=== PATIENT | female | born 2000 | race Caucasian/White ===

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

== ENCOUNTER → 2020-01-25 | Outpatient (CLI) | payer BC ==
[~2020-01-25] MED LIST: CIPR-249 PO
--- NOTE | 2020-03-03 08:18 | REP ---
RENAL ULTRASOUND: Delay in reporting results from hospital computer system malfunction from malware/ ransomware. HISTORY: Hydronephrosis. COMPARISON: 12/26/19 FINDINGS: The right kidney measures 12.6 x 4.1 x 6.0 cm. The left kidney measures 12.4 x 4.4 x 5.6 cm. The kidneys are normal size. Renal cortical echogenicity is normal bilaterally. There is severe hydronephrosis on the right. This is unchanged. There is mild hydronephrosis on the left. This is unchanged. No renal calculi are identified. There are no solid or cystic renal masses. IMPRESSION: Severe right hydronephrosis. Mild left hydronephrosis. This is unchanged from the prior study. BLADDER ULTRASOUND: The pre-void bladder volume is 834 ml. The post void bladder volume is 46 ml. Image of the right kidney post void demonstrates that the severe hydronephrosis is persistent. Image of the left kidney post void indicates the mild hydronephrosis is persistent. IMPRESSION: Bilateral hydronephrosis, severe on the right and mild on the left. The hydronephrosis persists bilaterally post void. The hydronephrosis is unchanged from the comparison study. MTDD
== END ==
LOC: M WHC 16:52
PROVIDERS: ATTEND Nurse Practitioner Family
DX: N13.30 Unspecified hydronephrosis (principal)

== ENCOUNTER → 2020-04-25 | Outpatient (CLI) | payer SELFPAY | LOC: M LABSMTC 10:12 | PROVIDERS: ATTEND Pediatrics | DX: Z20.828 Contact with and (suspected) exposure to other viral communicable diseases (principal) ==

== ENCOUNTER → 2020-05-01 | Outpatient (REF) | payer BC ==
[2020-05-01 14:15] LABS: APPEARANCE, URINE CLEAR (CLEAR); BACTERIA, URINE AUTO NEGATIVE (NEGATIVE); BILIRUBIN, URINE AUTO NEGATIVE (NEGATIVE); BLOOD, URINE BLOOD NEGATIVE (NEGATIVE); COLOR, URINE YELLOW (YELLOW); GLUCOSE, URINE (UA) AUTO NEGATIVE (NEGATIVE); KETONE, URINE AUTO NEGATIVE (NEGATIVE); LEUKOCYTE ESTERASE, URINE AUTO NEGATIVE (NEGATIVE); NITRITE, URINE AUTO NEGATIVE (NEGATIVE); PROTEIN, URINE AUTO NEGATIVE (NEGATIVE); RBC, URINE AUTO 0 /HPF (0-3); SPECIFIC GRAVITY URINE AUTO 1.009 (1.002-1.035); SQUAMOUS EPITHELIAL CELL UR AU 1 /HPF (0-6); UROBILINOGEN, URINE AUTO 0.2 mg/dL (0.0-2.0); WBC, URINE AUTO 1 /HPF (0-3)
== END ==
LOC: M SMT 13:21
PROVIDERS: ATTEND Urology
DX: N13.30 Unspecified hydronephrosis (principal)

== ENCOUNTER → 2020-10-26 | Outpatient (CLI) | payer BC, OTHER, SELFPAY ==
--- NOTE | 2020-10-27 07:21 | REP ---
INDICATION: HYDRONEPHROSIS COMPARISON: 01/25/2020 TECHNIQUE: Real time gonzalez scale ultrasound examination using curved array transducer. FINDINGS: Right kidney measures 9.7 x 5.6 x 4.1 cm with evidence for grade 3/4 hydroureteronephrosis including proximal ureter measuring 17 mm diameter. Right renal cysts cannot be excluded although these may represent dilated calices. No obvious nephrolithiasis noted. Left kidney is normal in appearance without hydroureteronephrosis and measures 11.8 x 5.0 x 6.3 cm. Limited evaluation of the bladder demonstrates a decreased right ureteral jet as compared to the left ureteral jet. IMPRESSION: 1. Grade 3/4 right hydronephrosis relatively similar to prior examination. However, the right kidney itself is decreased in size which suggesting subsequent atrophic changes. <Electronically signed by Carlos Henao > 10/27/20 0734
== END ==
LOC: M RAD 11:17
PROVIDERS: ATTEND Urology
DX: N13.30 Unspecified hydronephrosis (principal)

== ENCOUNTER → 2020-12-13 | Outpatient (CLI) | payer OTHER ==
[~2020-12-13] MED LIST changes: +NEXP1IMP SC
[2020-12-13 16:42] LABS: APPEARANCE, URINE CLEAR (CLEAR); BACTERIA, URINE AUTO NEGATIVE (NEGATIVE); BILIRUBIN, URINE AUTO NEGATIVE (NEGATIVE); BLOOD, URINE BLOOD 1+ (NEGATIVE); COLOR, URINE COLORLESS (YELLOW); GLUCOSE, URINE (UA) AUTO NEGATIVE (NEGATIVE); KETONE, URINE AUTO NEGATIVE (NEGATIVE); LEUKOCYTE ESTERASE, URINE AUTO NEGATIVE (NEGATIVE); NITRITE, URINE AUTO NEGATIVE (NEGATIVE); PROTEIN, URINE AUTO NEGATIVE (NEGATIVE); RBC, URINE AUTO 0 /HPF (0-3); SPECIFIC GRAVITY URINE AUTO 1.002 (1.002-1.035); SQUAMOUS EPITHELIAL CELL UR AU 0 /HPF (0-6); UROBILINOGEN, URINE AUTO 0.2 mg/dL (0.0-2.0); WBC, URINE AUTO 0 /HPF (0-3)
[2020-12-13 16:47] LABS: HEMATOCRIT 38.1 % (36.0-47.0); MEAN CORPUSCULAR HEMOGLOBIN 31.9 pg (27.0-33.0); MEAN CORPUSCULAR HGB CONC 34.1 g/dl (32.0-36.5); MEAN CORPUSCULAR VOLUME 93.4 fl (80.0-96.0); PLATELET COUNT, AUTOMATED 189 10^3/uL (150-450); RED BLOOD COUNT 4.08 10^6/uL (4.00-5.40); WHITE BLOOD COUNT 6.6 10^3/uL (4.0-10.0)
[2020-12-13 17:16] LABS: INR 1.05; PROTHROMBIN TIME 13.9 SECONDS (12.5-14.3)
[2020-12-13 17:17] LABS: PARTIAL THROMBOPLASTIN TIME 32.3 SECONDS (24.2-38.5)
[2020-12-13 17:18] LABS: BLOOD UREA NITROGEN 22 MG/DL (7-18); CALCIUM LEVEL 8.8 MG/DL (8.5-10.1); CARBON DIOXIDE LEVEL 25 MEQ/L (21-32); CHLORIDE LEVEL 105 MEQ/L (98-107); CREATININE FOR GFR 0.83 MG/DL (0.55-1.30); GLUCOSE, FASTING 73 MG/DL (70-100); POTASSIUM SERUM 3.6 MEQ/L (3.5-5.1); SODIUM LEVEL 137 MEQ/L (136-145)
== END ==
LOC: M WUC 14:22
PROVIDERS: ATTEND Nurse Practitioner Family
DX: Z01.818 Encounter for other preprocedural examination (principal); N13.30 Unspecified hydronephrosis

== ENCOUNTER → 2020-12-16 | Outpatient (CLI) | payer OTHER | LOC: M LABSMTC 09:56 | PROVIDERS: ATTEND Anesthesiology | DX: Z01.818 Encounter for other preprocedural examination (principal); Z11.52 Encounter for screening for COVID-19 ==

== ENCOUNTER 2020-12-21 10:37 | Day surgery (SDC) | payer OTHER ==
[~2020-12-21] VITALS: Ht 170.2 cm; Wt 58.5 kg
[~2020-12-21 10:37] MED LIST changes: +CONRAY-60 60% 50ML VIAL (Q9961) As Ordered ONE; +LIDOCAINE 1% MDV 20ML VIAL SQ PRN; +ceFAZolin SOD 2 GM in IV 1 EA IV ONE
[2020-12-21] MEDS ORDERED: LR 1,000 ML IV ONE (10:45)
[2020-12-21] MEDS ORDERED: MIDAZOLAM INJ 2MG/2ML VIAL (J2250 PER 1MG) As Ordered ONE (12:38)
[2020-12-21] MEDS ORDERED: fentaNYL 100 MCG/2 ML INJECTION (J3010) As Ordered ONE (12:39)
[2020-12-21] MEDS ORDERED: LIDOCAINE 2% 100MG/5ML SDV (FOR ANES.) As Ordered ONE (12:40)
[2020-12-21] MEDS ORDERED: propofoL 200 MG/20 ML VIAL As Ordered ONE (12:40)
[2020-12-21] MEDS ORDERED: dexameTHASONE 4 MG/ML 1ML VIAL (J1100 PER 1MG) As Ordered ONE (12:41)
[2020-12-21] MEDS ORDERED: KETOROLAC 60MG 2ML VIAL As Ordered ONE (12:41)
[2020-12-21] MEDS ORDERED: ONDANSETRON 4MG/2ML VIAL As Ordered ONE (12:41)
[2020-12-21] MEDS ORDERED: ACETAMINOPHEN 1000MG 100ML IV BTL (OFIRMEV) (J0131 PER 10MG) As Ordered ONE (12:41)
[2020-12-21] MEDS ORDERED: CONRAY-60 60% 50ML VIAL (Q9961) As Ordered ONE (13:29)
--- NOTE | 2020-12-21 14:04 | REP ---
INDICATION: RIGHT STENT PLACEMENT. COMPARISON: None. TECHNIQUE: Six views. 39 seconds of fluoroscopy time is reported. FINDINGS: A sequence of 6 last image hold fluoroscopically obtained spot radiographs the right abdomen document right ureteral cannulation, contrast injection, a mid ureteral stricture, balloon dilation of the ureter, right-sided hydronephrosis, and right-sided double-pigtail ureteral stent placement. IMPRESSION: Procedural imaging. <Electronically signed by Jonathon Serrano > 12/21/20 1400
[2020-12-21] MEDS ORDERED: LR 1,000 ML IV SCH (14:15)
[2020-12-21] MEDS ORDERED: oxyCODONE 5MG TAB PO PRN (14:15)
[2020-12-21] MEDS ORDERED: METOCLOPRAMIDE INJ 10MG/2ML VIAL (J2765 PER 1) IV PRN (14:15)
[2020-12-21] MEDS ORDERED: oxyBUTYnin 5 MG TAB PO PRN (14:15)
[2020-12-21] MEDS ORDERED: fentaNYL 100 MCG/2 ML INJECTION (J3010) IV PRN (14:15)
[2020-12-21] MEDS ORDERED: ONDANSETRON 4MG/2ML VIAL IV PRN (14:15)
[2020-12-21] MEDS ORDERED: PERCOCET 5MG/325MG TAB PO PRN (14:15)
[2020-12-21] MEDS ORDERED: PERCOCET PO (14:19)
[2020-12-21] MEDS ORDERED: OXYB5TAB10 PO (14:19)
[2020-12-21 15:30] VITALS: BP 105/73
--- NOTE | 2020-12-22 08:56 | RO ---
OPERATIVE NOTE DATE OF OPERATION: 12/21/2020 PREOPERATIVE DIAGNOSES: Right hydroureteronephrosis. POSTOPERATIVE DIAGNOSIS: Right ureteral stricture, right hydroureteronephrosis. PROCEDURE: Cystoscopy, right ureteroscopy with balloon dilation of ureteral stricture, right retrograde pyelogram with intraoperative interpreted images, right ureteral stent placement. SURGEON: Rick Cabrera MD HEMATOLOGY NURSE: None. ANESTHESIA: OPERATIVE INDICATIONS: This is a 20-year-old female who was originally found to have mild to moderate right hydronephrosis several months ago. On followup renal ultrasound, she still had persistent right-sided hydronephrosis as well as what appeared to atrophic changes in the right kidney. She is brought to the operating room today to try to determine the cause of hydronephrosis and to treat it as well as to place a stent. DESCRIPTION OF PROCEDURE: The patient was brought to the operating room and general anesthesia was induced. Prophylactic antibiotics were infused. She was placed in the dorsal lithotomy position, and prepped and draped in the usual sterile fashion. A rigid cystoscope was inserted in the urethral meatus and advanced into the bladder. A guidewire was advanced up the right collecting system. I then advanced a 5 Mozambican open ended ureteral catheter up the right collecting system. The wire was removed. A retrograde pyelogram was performed and contrast opacified the distal ureter all the way up to the mid-ureter and not much contrast went above that level. I then advanced the ureteral catheter up above the level of narrowing and a retrograde pyelogram was performed. It demonstrated right hydroureteronephrosis down to a very short segment of ureteral stricture. At this point, I advanced the guidewire back up the right collecting system. I went into the right collecting system with a short semirigid ureteroscope and in the mid-ureter at about the level of the crossing of the iliac vessels, there was a very narrow stricture. There were no lesions seen inside the ureter. I was not able to get the scope through the stricture. At this point, the ureteroscope was removed and I then advanced a 15 Mozambican balloon dilator up the right collecting system. I then inflated the balloon to 15 Mozambican several times in this area of the stricture and left it inflated for about a minute each time. Once that was done, the balloon dilator was removed and I went back up the collecting system with a ureteroscope. Once that was done, I was able to get the ureteroscope through the level of the stricture as it was a little bit more patent. Of note, it was not significantly more patent. I advanced the ureteroscope into the more proximal ureter and no abnormalities were seen other than the severely dilated ureter. I then withdrew the ureteroscope and utilized the guidewire to advance a 6 Mozambican x 22-32 cm JJ ureteral stent up the right collecting system. The wire was removed and there were adequate curls of the stent in the right renal pelvis and in the bladder. The bladder was emptied of all fluids and this marked the conclusion of the procedure. The patient was then taken out of dorsal lithotomy position, awakened from anesthesia and transported to the recovery room in stable condition. ESTIMATED BLOOD LOSS: 5 mL COMPLICATIONS: None. SPECIMENS: None. PLAN: I will leave the patient's stent in and get a repeat Mag3 Lasix renal scan to see if her renal function is improved with the stent in place. If she has significantly improved function with the stent in place, then we should try to salvage this kidney. It might be the case that her ureter will remain patent from the balloon dilation alone. If it does not, then she might require a ureteroureterostomy in the future. MARTÍN
== END 2020-12-21 15:40 | disposition home or self-care (01) ==
LOC: M SDC 10:37
PROVIDERS: ATTEND Urology
DX: N13.1 Hydronephrosis with ureteral stricture, not elsewhere classified (principal); Z79.3 Long term (current) use of hormonal contraceptives
CPT/HCPCS: 52332; 52341; 74420; 81025; C1769; C2617; J0131; J0690; J1100; J1885; J2250; J2405; J3010; Q9961

== ENCOUNTER → 2021-01-08 | Outpatient (CLI) | payer OTHER ==
[~2021-01-08] MED LIST changes: -CONRAY-60 60% 50ML VIAL (Q9961) As Ordered ONE; -LIDOCAINE 1% MDV 20ML VIAL SQ PRN; +OXYB5TAB10 PO; +PERCOCET PO; -ceFAZolin SOD 2 GM in IV 1 EA IV ONE
--- NOTE | 2021-01-08 14:04 | REP ---
INDICATION: URETERAL STRICTURE-RT. COMPARISON: Ultrasound 10/26/2020. TECHNIQUE/RADIOTRACER AND DOSE: Following the intravenous administration of 8.8 mCi technetium 99 M Mag 3, flow and function images are obtained in the posterior projection up to 30 minutes. FINDINGS: There is delayed and somewhat compromised perfusion of the right kidney. The right kidney appears smaller than the left. There is bilateral cortical uptake and excretion. There is no hydronephrosis bilaterally. There is mild right-sided pelvicaliectasis without obstruction. Split function is 63.7% on the left and 36.3% on the right. Time to peak is normal bilaterally at 2 minutes. T1/2 is normal on the left at 7.2 minutes with a normal appearing renal function curve. T1/2 on the right is upper limits of normal 11.3 minutes with a somewhat shallow downward slope. There is very mild postvoid residual in the urinary bladder after voiding. IMPRESSION: Right kidney appears atrophic with lesser degree of flow and function compared to the left. Mild right pelvicaliectasis with no evidence of urinary tract obstruction. <Electronically signed by Andrey Meneses > 01/08/21 [id number]
== END ==
LOC: M RAD 12:21
PROVIDERS: ATTEND Urology
DX: N13.5 Crossing vessel and stricture of ureter without hydronephrosis (principal)
CPT/HCPCS: 78707; A9562

== ENCOUNTER → 2021-02-27 | Outpatient (CLI) | payer OTHER ==
[2021-02-27 12:26] LABS: BASO % 0.7 % (0.0-1.0); EOS # 0.1 10^3/uL (0.0-0.5); EOS % 1.5 % (0.0-3.0); HEMATOCRIT 39.6 % (36.0-47.0); HEMOGLOBIN 13.2 g/dl (12.0-15.5); LYMPH % 33.9 % (24.0-44.0); MEAN CORPUSCULAR HEMOGLOBIN 31.5 pg (27.0-33.0); MEAN CORPUSCULAR HGB CONC 33.3 g/dl (32.0-36.5); MEAN CORPUSCULAR VOLUME 94.5 fl (80.0-96.0); MONO # 0.5 10^3/uL (0.0-0.8); MONO % 8.3 % (2.0-8.0); NEUTROPHILS # 3.2 10^3/uL (1.5-8.5); NEUTROPHILS % 55.3 % (36.0-66.0); PLATELET COUNT, AUTOMATED 238 10^3/uL (150-450); RED BLOOD COUNT 4.19 10^6/uL (4.00-5.40); WHITE BLOOD COUNT 5.8 10^3/uL (4.0-10.0)
[2021-02-27 13:13] LABS: ALBUMIN 3.7 GM/DL (3.2-5.2); ALT/SGPT 38 U/L (12-78); BILIRUBIN,TOTAL 0.4 MG/DL (0.2-1.0); BLOOD UREA NITROGEN 17 MG/DL (7-18); CALCIUM LEVEL 9.2 MG/DL (8.5-10.1); CARBON DIOXIDE LEVEL 25 MEQ/L (21-32); CHLORIDE LEVEL 106 MEQ/L (98-107); FREE T4 0.96 NG/DL (0.78-1.33); GLUCOSE, FASTING 85 MG/DL (70-100); SODIUM LEVEL 140 MEQ/L (136-145); TOTAL 25(OH) VITAMIN D 32.6 NG/ML (30.0-100.0); TOTAL PROTEIN 6.7 GM/DL (6.4-8.2)
== END ==
LOC: M WUC 08:47
PROVIDERS: ATTEND Physician Assistant
DX: Z13.29 Encounter for screening for other suspected endocrine disorder (principal)

== ENCOUNTER → 2021-03-06 | Outpatient (CLI) | payer OTHER ==
[~2021-03-06] MED LIST changes: +ISOVUE-370 76% 100ML VIAL As Ordered ONE
--- NOTE | 2021-03-06 12:55 | REP ---
INDICATION: RT URETERAL STRICTURE. COMPARISON: Comparison CT study is from December 26, 2019. Comparison retrograde ureteral g December 21, 2020. TECHNIQUE: Contrast dose: 100 ML of Isovue [address] technique: Helical scanning is acquired through the abdomen and pelvis prior to and with dual phase post-contrast sequences. 3 mm axial images re-formatted. Coronal and sagittal MPR images are included. FINDINGS: Preliminary digital software architect radiograph is unremarkable. The lung bases are clear on axial CT images. There is no evidence of pleural effusion or upper abdominal ascites. The liver and the spleen are normal in size and homogeneous in texture on pre and postcontrast images. The adrenal glands are unremarkable. No abnormality is noted in the pancreas or the gallbladder. Small and large bowel loops are unremarkable in the abdomen and pelvis. No retroperitoneal mass or adenopathy is seen. No uterine or ovarian abnormality is observed. Urinary bladder is unremarkable. No abdominal wall defect is seen. There is multifocal cortical scarring and and some diffuse atrophy of the right kidney. The right renal length is 10.2 cm. Left kidney measures 12.1 cm in length. No renal mass or cyst is seen. The right-sided hydronephrosis is substantially improved from the December 26, 2019 CT study. There is a mild hydroureter visible in the proximal ureter. The distal ureter is not seen. This patient has relatively limited abdominal and retroperitoneal fat. A small quantity of physiologic fluid is seen in the cul-de-sac. No left-sided hydronephrosis is seen. No renal mass is observed. 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 IMPRESSION: Previously noted right-sided hydronephrosis is substantially improved. There is some renal cortical scarring and mild diffuse renal atrophy. <Electronically signed by Jonathon Serrano > 03/06/21 [id number]
== END ==
LOC: M RAD 08:20
PROVIDERS: ATTEND Urology
DX: N13.5 Crossing vessel and stricture of ureter without hydronephrosis (principal)

== ENCOUNTER → 2021-06-03 | Outpatient (CLI) | payer OTHER ==
[~2021-06-03] MED LIST changes: -ISOVUE-370 76% 100ML VIAL As Ordered ONE
[2021-06-03 16:56] LABS: BASO % 0.4 % (0.0-1.0); EOS # 0.1 10^3/uL (0.0-0.5); EOS % 0.8 % (0.0-3.0); HEMATOCRIT 37.5 % (36.0-47.0); HEMOGLOBIN 12.6 g/dl (12.0-15.5); LYMPH # 1.9 10^3/uL (1.5-5.0); LYMPH % 22.4 % (24.0-44.0); MEAN CORPUSCULAR HEMOGLOBIN 32.1 pg (27.0-33.0); MEAN CORPUSCULAR HGB CONC 33.6 g/dl (32.0-36.5); MEAN CORPUSCULAR VOLUME 95.4 fl (80.0-96.0); MONO # 0.7 10^3/uL (0.0-0.8); MONO % 8.8 % (2.0-8.0); NEUTROPHILS # 5.7 10^3/uL (1.5-8.5); NEUTROPHILS % 67.2 % (36.0-66.0); PLATELET COUNT, AUTOMATED 188 10^3/uL (150-450); RED BLOOD COUNT 3.93 10^6/uL (4.00-5.40); WHITE BLOOD COUNT 8.4 10^3/uL (4.0-10.0)
[2021-06-03 17:40] LABS: ALT/SGPT 38 U/L (12-78); BILIRUBIN,TOTAL 0.4 MG/DL (0.2-1.0); BLOOD UREA NITROGEN 20 MG/DL (7-18); CALCIUM LEVEL 9.1 MG/DL (8.5-10.1); CARBON DIOXIDE LEVEL 28 MEQ/L (21-32); CHLORIDE LEVEL 107 MEQ/L (98-107); CREATININE FOR GFR 0.71 MG/DL (0.55-1.30); FREE T4 0.92 NG/DL (0.78-1.33); GLUCOSE, FASTING 86 MG/DL (70-100); POTASSIUM SERUM 4.1 MEQ/L (3.5-5.1); SODIUM LEVEL 141 MEQ/L (136-145); TOTAL PROTEIN 6.8 GM/DL (6.4-8.2)
== END ==
LOC: M LAB 15:48
PROVIDERS: ATTEND Physician Assistant
DX: R94.6 Abnormal results of thyroid function studies (principal); E55.9 Vitamin D deficiency, unspecified

== ENCOUNTER → 2021-06-12 | Outpatient (CLI) | payer OTHER ==
--- NOTE | 2021-06-12 10:58 | REP ---
INDICATION: URETERAL STRICTURE, HYDRONEPHROSIS COMPARISON: 10/26/2020 TECHNIQUE: Real time gonzalez scale ultrasound examination using curved array transducer. FINDINGS: Right kidney measures 10.1 x 4.3 x 3.6 cm and demonstrates very minimal residual hydronephrosis with suggestions for partial duplication. Left kidney is normal in appearance and measures 11.3 x 5.5 x 5.9 cm. The bladder is unremarkable. IMPRESSION: Right kidney appears improved with only minimal and possibly chronic residual mild hydronephrosis. Left kidney remains normal. <Electronically signed by Carlos Henao > 06/12/21 1057
== END ==
LOC: M RAD 10:15
PROVIDERS: ATTEND Urology
DX: N13.5 Crossing vessel and stricture of ureter without hydronephrosis (principal); N13.30 Unspecified hydronephrosis

== ENCOUNTER → 2021-09-28 | Outpatient (CLI) | payer OTHER | LOC: M WUC 13:55 | PROVIDERS: ATTEND Family Medicine | DX: N64.89 Other specified disorders of breast (principal) ==

== ENCOUNTER → 2022-06-12 | Outpatient (CLI) | payer OTHER ==
[~2022-06-12] MED LIST changes: +ETON68IM SC; -NEXP1IMP SC
[2022-06-12 13:11] LABS: THYROID STIMULATING HORMONE 2.019 uIU/ML (0.55-4.78); TOTAL 25(OH) VITAMIN D 25.7 NG/ML (20.0-100.0)
[2022-06-12 13:13] LABS: FREE T4 1.04 NG/DL (0.89-1.76)
== END ==
LOC: M WUC 09:35
PROVIDERS: ATTEND Physician Assistant
DX: E55.9 Vitamin D deficiency, unspecified (principal); Z13.29 Encounter for screening for other suspected endocrine disorder

== ENCOUNTER → 2024-01-08 | Outpatient (CLI) | payer OTHER ==
[~2024-01-08] MED LIST changes: -OXYB5TAB10 PO; +OXYB5TAB14 PO
[2024-01-08 10:57] LABS: BASO # 0.1 10^3/uL (0.0-0.2); BASO % 0.8 % (0.0-1.0); EOS # 0.1 10^3/uL (0.0-0.5); HEMATOCRIT 38.1 % (36.0-47.0); HEMOGLOBIN 12.7 g/dl (12.0-15.5); LYMPH # 1.6 10^3/uL (1.5-5.0); LYMPH % 26.6 % (24.0-44.0); MEAN CORPUSCULAR HGB CONC 33.3 g/dl (32.0-36.5); MEAN CORPUSCULAR VOLUME 92.9 fl (80.0-96.0); MONO # 0.4 10^3/uL (0.0-0.8); MONO % 7.2 % (2.0-8.0); NEUTROPHILS # 3.9 10^3/uL (1.5-8.5); NEUTROPHILS % 64.2 % (36.0-66.0); PLATELET COUNT, AUTOMATED 242 10^3/uL (150-450); WHITE BLOOD COUNT 6.1 10^3/uL (4.0-10.0)
[2024-01-08 11:00] LABS: ALBUMIN 4.2 G/DL (3.2-5.2); BLOOD UREA NITROGEN 20 MG/DL (9-23); CALCIUM LEVEL 9.3 MG/DL (8.5-10.1); CARBON DIOXIDE LEVEL 26 MMOL/L (20-31); CHLORIDE LEVEL 109 MMOL/L (98-107); COMPLEMENT C3 85.3 MG/DL (82.0-160.0); COMPLEMENT C4 11.1 MG/DL (12-36); CREATININE FOR GFR 0.93 MG/DL (0.55-1.30); GLOMERULAR FILTRATION RATE > 60.0 (>60); GLUCOSE, FASTING 84 MG/DL (60-100); PHOSPHORUS LEVEL 3.8 MG/DL (2.5-4.9); POTASSIUM SERUM 4.4 MMOL/L (3.5-5.1); SODIUM LEVEL 140 MMOL/L (136-145)
[2024-01-09 10:38] LABS: SSA SJOGRENS A <1.0 NEG AI (<1.0 NEG); SSB SJOGRENS B <1.0 NEG AI (<1.0 NEG)
[2024-01-09 14:42] LABS: ANA SCREEN, IFA NEGATIVE (NEGATIVE)
== END ==
LOC: M WUC 08:06
PROVIDERS: ATTEND Nurse Practitioner Family
DX: R21 Rash and other nonspecific skin eruption (principal)

== ENCOUNTER → 2024-01-22 | Outpatient (CLI) | payer OTHER ==
[2024-01-22 10:52] LABS: COMPLEMENT C3 83.1 MG/DL (82.0-160.0); COMPLEMENT C4 12.2 MG/DL (12-36)
== END ==
LOC: M PLALAB 07:05
PROVIDERS: ATTEND Nurse Practitioner Family
DX: R79.89 Other specified abnormal findings of blood chemistry (principal)